=== PATIENT | male | born 1975 | race American Indian/Alaskan Native ===

== ENCOUNTER 2021-12-07 15:26 | Emergency (ER) | payer MEDICARE ==
--- NOTE | 2021-12-07 17:18 | Emergency Department Report ---
HPI - General Chief Complaint: Psych Time Seen by Provider: 12/07/21 16:36 - HPI HPI: Room 12 The patient is a 46-year-old male present with a chief complaint of psychosis. The patient reportedly has not been sleeping for 3 days and has been anxious. The patient states today he wrote a letter to [place] president Andres Cerda telling him the warning [place] was wrong. Patient admits to auditory hallucinations hearing laughing and visual hallucinations seeing "the universe." Crisis team was called to the patient's home and responded and sent the patient to the ED stating that he is having psychosis. Patient denies suicidal homicidal ideation. Patient states he has been compliant with his medication for his schizophrenia, bipolar disorder depression which includes olanzapine. ED Past Medical Hx - Past Medical History Previous Medical History?: Yes Hx Psychiatric Treatment: Yes (BIPOLAR/ SCHIZOPHERNIA) Hx Asthma: Yes Additional medical history: History of polio - Surgical History Past Surgical History?: No - Family History Family history: no significant - Social History Smoking Status: Current Some Day Smoker Substance Use Type: None (Denies illicit drug use), Alcohol (Occasional) - Medications Home Medications: Home Medications Medication Instructions Recorded Confirmed Last Taken Type OLANzapine [Zyprexa] 12/07/21 Unknown History ED Review of Systems ROS: Stated complaint: MENTAL CRISIS Other details as noted in HPI Constitutional: no symptoms reported Eyes: denies: eye pain ENT: denies: throat pain Respiratory: no symptoms reported Cardiovascular: denies: chest pain Endocrine: no symptoms reported Gastrointestinal: denies: abdominal pain Genitourinary: denies: dysuria Musculoskeletal: denies: back pain Neurological: denies: headache Psychiatric: auditory hallucinations, visual hallucinations. denies: homicidal thoughts, suicidal thoughts Physical Exam - Physical Exam Vital Signs: Vital Signs 12/07/21 12/07/21 15:40 16:38 Temperature 98.7 F Pulse Rate 73 Respiratory 18 Rate Blood Pressure 144/94 [Right] O2 Sat by Pulse 98 99 Oximetry Physical Exam: GENERAL: The patient is well-developed well-nourished male sitting in chair eating food not appearing to be in acute distress. [] HEENT: Normocephalic. Atraumatic. Extraocular motions are intact. Patient has moist mucous membranes. NECK: Supple. Trachea midline CHEST/LUNGS: Clear to auscultation. There is no respiratory distress noted. HEART/CARDIOVASCULAR: Regular. There is no tachycardia. There is no gallop rub or murmur. ABDOMEN: Abdomen is soft, nontender. Patient has normal bowel sounds. There is no abdominal distention. SKIN: There is no rash. There is no edema. There is no diaphoresis. NEURO: The patient is awake, alert, and oriented. The patient is cooperative. The patient has no focal neurologic deficits. The patient has normal speech. GCS 15 MUSCULOSKELETAL: There is no evidence of acute injury. ED Course Vital Signs 12/07/21 12/07/21 15:40 16:38 Temperature 98.7 F Pulse Rate 73 Respiratory 18 Rate Blood Pressure 144/94 [Right] O2 Sat by Pulse 98 99 Oximetry ED Medical Decision Making - Lab Data Result diagrams: 12/07/21 17:25 12/07/21 17:25 Laboratory Tests 12/07/21 12/07/21 12/07/21 17:25 17:25 17:25 WBC 4.3 L RBC 6.18 H Hgb 17.3 H Hct 53.9 H MCV 87 MCH 28 MCHC 32 RDW 14.5 Plt Count 134 L Lymph % (Auto) 24.6 [place] % (Auto) 10.8 H Eos % (Auto) 6.1 H Baso % (Auto) 0.6 Lymph # (Auto) 1.1 L [place] # (Auto) 0.5 Eos # (Auto) 0.3 Baso # (Auto) 0.0 Seg Neutrophils % 57.9 Seg Neutrophils # 2.5 Sodium 137 Potassium 4.2 Chloride 98.7 Carbon Dioxide 25 Anion Gap 18 BUN 7 L Creatinine 0.7 L Estimated GFR > 60 BUN/Creatinine Ratio 10 Glucose 151 H Calcium 9.4 Total Bilirubin 0.50 AST 50 H ALT 36 Alkaline Phosphatase 96 Total Protein 8.1 Albumin 4.5 Albumin/Globulin Ratio 1.3 Urine Color Urine Turbidity Urine pH Ur Specific [place] Urine Protein Urine Glucose (UA) Urine Ketones Urine Blood Urine Nitrite Urine Bilirubin Urine Urobilinogen Ur Leukocyte Esterase Urine WBC (Auto) Urine RBC (Auto) Urine Mucus Salicylates < 0.3 L Urine Opiates Screen Urine Methadone Screen Acetaminophen Ur Barbiturates Screen Ur Phencyclidine Scrn Ur Amphetamines Screen U Benzodiazepines Scrn Urine Cocaine Screen U Marijuana (THC) Screen Drugs of Abuse Note Plasma/Serum Alcohol 03/12/07/21 12/07/21 17:25 17:25 Unknown WBC RBC Hgb Hct MCV MCH MCHC RDW Plt Count Lymph % (Auto) [place] % (Auto) Eos % (Auto) Baso % (Auto) Lymph # (Auto) [place] # (Auto) Eos # (Auto) Baso # (Auto) Seg Neutrophils % Seg Neutrophils # Sodium Potassium Chloride Carbon Dioxide Anion Gap BUN Creatinine Estimated GFR BUN/Creatinine Ratio Glucose Calcium Total Bilirubin AST ALT Alkaline Phosphatase Total Protein Albumin Albumin/Globulin Ratio Urine Color Straw Urine Turbidity Clear Urine pH 6.0 Ur Specific [place] 1.009 Urine Protein <15 mg/dl Urine Glucose (UA) Neg Urine Ketones Neg Urine Blood Sm Urine Nitrite Neg Urine Bilirubin Neg Urine Urobilinogen < 2.0 Ur Leukocyte Esterase Neg Urine WBC (Auto) 1.0 Urine RBC (Auto) 2.0 Urine Mucus Few Salicylates Urine Opiates Screen Urine Methadone Screen Acetaminophen 5.0 L Ur Barbiturates Screen Ur Phencyclidine Scrn Ur Amphetamines Screen U Benzodiazepines Scrn Urine Cocaine Screen U Marijuana (THC) Screen Drugs of Abuse Note Plasma/Serum Alcohol < 0.01 12/07/21 Unknown WBC RBC Hgb Hct MCV MCH MCHC RDW Plt Count Lymph % (Auto) [place] % (Auto) Eos % (Auto) Baso % (Auto) Lymph # (Auto) [place] # (Auto) Eos # (Auto) Baso # (Auto) Seg Neutrophils % Seg Neutrophils # Sodium Potassium Chloride Carbon Dioxide Anion Gap BUN Creatinine Estimated GFR BUN/Creatinine Ratio Glucose Calcium Total Bilirubin AST ALT Alkaline Phosphatase Total Protein Albumin Albumin/Globulin Ratio Urine Color Urine Turbidity Urine pH Ur Specific [place] Urine Protein Urine Glucose (UA) Urine Ketones Urine Blood Urine Nitrite Urine Bilirubin Urine Urobilinogen Ur Leukocyte Esterase Urine WBC (Auto) Urine RBC (Auto) Urine Mucus Salicylates Urine Opiates Screen Negative Urine Methadone Screen Negative Acetaminophen Ur Barbiturates Screen Negative Ur Phencyclidine Scrn Negative Ur Amphetamines Screen Negative U Benzodiazepines Scrn Negative Urine Cocaine Screen Negative U Marijuana (THC) Screen Negative Drugs of Abuse Note Disclamer Plasma/Serum Alcohol - Differential Diagnosis Schizophrenia Critical care attestation.: If time is entered above; I have spent that time in minutes in the direct care of this critically ill patient, excluding procedure time. ED Disposition Clinical Impression: Schizophrenia Disposition: 30 STILL A PATIENT Is pt being admited?: No Does the pt Need Aspirin: No Condition: Stable Time of Disposition: 18:30 (Awaiting acceptance)
[2021-12-07 17:46] LABS: Bilirubin,Urine NEG (Negative); Blood,Urine SM (Negative); Color,Urine Straw (Yellow); Mucus,Urine FEW /HPF; Protein,Urine <15 mg/dL mg/dL (Negative); Urobilinogen,Urine < 2.0 mg/dL (<2.0)
[2021-12-07 17:53] LABS: Amphetamine Screen,Urine Negative; Benzodiazepines Screen,Urine Negative; Cannabinoid Screen,Urine Negative; Cocaine Screen,Urine Negative; Methadone Screen,Urine Negative; Opiate Screen,Urine Negative
[2021-12-07 17:56] LABS: Basophils % (Auto) 0.6 % (0.0-1.8); Eosinophils # (Auto) 0.3 K/mm3 (0.0-0.4); Eosinophils % (Auto) 6.1 % (0.0-4.3); Hematocrit 53.9 % (35.5-45.6); Hemoglobin 17.3 gm/dl (11.8-15.2); Lymphocytes # (Auto) 1.1 K/mm3 (1.2-5.4); Lymphocytes % (Auto) 24.6 % (13.4-35.0); Mean Corpuscular HGB Conc 32 % (32-34); Mean Corpuscular Volume 87 fl (84-94); Monocytes # (Auto) 0.5 K/mm3 (0.0-0.8); Monocytes % (Auto) 10.8 % (0.0-7.3); Platelet Count 134 K/mm3 (140-440); Red Blood Count 6.18 M/mm3 (3.65-5.03); Red Cell Distribution Width 14.5 % (13.2-15.2)
[2021-12-07 18:19] LABS: Alanine Aminotransferase 36 units/L (7-56); Albumin 4.5 g/dL (3.9-5); Blood Urea Nitrogen 7 mg/dL (9-20); Calcium 9.4 mg/dL (8.4-10.2); Hemolysis Index 11
[2021-12-07 18:26] LABS: BUN/Creatinine Ratio 10
--- NOTE | 2021-12-07 19:45 | Event Note ---
I spoke with mental health cloth dyer. Involuntary hold indicated due to acute psychosis paranoia. I have completed 1013 form after evaluating patient.
[2021-12-08] MEDS ORDERED: ZIPRASIDONE MESYLATE 20 MG VIAL IM ONE (07:30)
--- NOTE | 2021-12-08 10:13 | Consultation ---
History of Present Illness - Reason for Consult Consult date: 12/08/21 Reason for consult: acute psychosis - History of Present Psychiatric Illness ED Note: The patient is a 46-year-old male present with a chief complaint of psychosis. The patient reportedly has not been sleeping for 3 days and has been anxious. The patient states today he wrote a letter to [place] president Andres Cerda telling him the warning [place] was wrong. Patient admits to auditory hallucinations hearing laughing and visual hallucinations seeing "the universe." Crisis team was called to the patient's home and responded and sent the patient to the ED stating that he is having psychosis. Patient denies suicidal homicidal ideation. Patient states he has been compliant with his medication for his schizophrenia, bipolar disorder depression which includes olanzapine. The patient was seen pacing, standing at the door with disorganized thinking. The patient states " [place] is okay, if you come from [place] you can sleep where you like." He endorses auditory hallucinations " voices saying there's no need to fight." The patient was administered Geodon 20mg IM. Diagnoses: Schizophrenia, Bipolar Suicide attempts or Self-harm behavior: Yes Prior psychiatric hospitalizations: Yes Substance Abuse history: Denies Previous psychiatric medications tried:Unable to recall Outpatient treatment: Unknown PAST MEDICAL HISTORY: unknown Family Psychiatric History: None reported or documented SOCIAL HISTORY Marital Status: Single Living Arrangements: lives alone Employment Status: unknown Access to guns/weapons: Denies Education: 12th grade History of Abuse: none reported Legal History: none reported REVIEW OF SYSTEMS Constitutional: Negative for weight loss ENT: Negative for stridor Respiratory: Negative for cough or hemoptysis All other systems reviewed and are negative MENTAL STATUS EXAMINATION General Appearance and Behavior: Age appropriate, good hygiene, wearing appropriate clothes, calm, cooperative Cooperation: Participating/engaged Psychomotor Behavior: Normal Mood: psychosis Affect and affective range: congruent with mood Thought Process: Disorganized Thought Content: Hallucinations Speech: Hypervebal Suicidal Ideation: Denies Homicidal Ideation: Denies Hallucinations: Auditory Delusions: None elicited Impulse Control: Questionable Insight and Judgment: Limited insight and judgment, Memory: Normal Attention: Divided Orientation: Alert, oriented Assessment and Plan (1)Schizophrenia Current Visit: Yes Status: Acute 1013 Treatment Plan Zyprexa 10mg po BID The patient needs to follow up with his outpatient psychiatrist and therapist. Continue home meds Disposition: Recommend psychiatric inpatient admission at this time. Will follow. Thanks Case staffed with Dr. Zhu Medications and Allergies Medications and Allergies Allergies Allergy/AdvReac Type Severity Reaction Status Date / Time No Known Allergies Allergy Unverified 12/07/21 15:37 Home Medications Medication Instructions Recorded Confirmed Last Taken Type OLANzapine [Zyprexa] 5 mg PO HS 12/07/21 12/07/21 Unknown History Mental Status Exam - Vital signs Last Vital Signs Temp 97.6 F 12/08/21 09:41 Pulse 90 12/08/21 09:41 Resp 18 12/08/21 09:41 BP 108/74 12/08/21 09:41 Pulse Ox 97 12/08/21 09:41 Results Result Diagrams: 12/07/21 17:25 12/07/21 17:25 Abnormal lab results 12/07/21 12/07/21 12/07/21 Range/Units 17:25 17:25 17:25 WBC 4.3 L (4.5-11.0) K/mm3 RBC 6.18 H (3.65-5.03) M/mm3 Hgb 17.3 H (11.8-15.2) gm/dl Hct 53.9 H (35.5-45.6) % Plt Count 134 L (140-440) K/mm3 [place] % (Auto) 10.8 H (0.0-7.3) % Eos % (Auto) 6.1 H (0.0-4.3) % Lymph # (Auto) 1.1 L (1.2-5.4) K/mm3 BUN 7 L (9-20) mg/dL Creatinine 0.7 L (0.8-1.3) mg/dL Glucose 151 H (75-100) mg/dL AST 50 H (5-40) units/L Salicylates < 0.3 L (2.8-20.0) mg/dL Acetaminophen (10.0-30.0) ug/mL 12/07/21 Range/Units 17:25 WBC (4.5-11.0) K/mm3 RBC (3.65-5.03) M/mm3 Hgb (11.8-15.2) gm/dl Hct (35.5-45.6) % Plt Count (140-440) K/mm3 [place] % (Auto) (0.0-7.3) % Eos % (Auto) (0.0-4.3) % Lymph # (Auto) (1.2-5.4) K/mm3 BUN (9-20) mg/dL Creatinine (0.8-1.3) mg/dL Glucose (75-100) mg/dL AST (5-40) units/L Salicylates (2.8-20.0) mg/dL Acetaminophen 5.0 L (10.0-30.0) ug/mL All other labs normal.
--- NOTE | 2021-12-08 12:18 | Event Note ---
Date: 12/08/21 S: Patient was reportedly restless and hyperverbal this morning requiring medication. Otherwise no events reported overnight O: Vital Signs - 8 hr 12/08/21 12/08/21 07:56 09:41 Temperature 97.6 F Pulse Rate 90 Respiratory 18 Rate Blood Pressure 108/74 [Right] O2 Sat by Pulse 100 97 Oximetry A: Schizophrenia P: 1013/awaiting inpatient psych
--- NOTE | 2021-12-09 09:21 | Progress Note ---
Subjective - Reason for Consult Consult date: 12/09/21 Reason for consult: Psychosis - Chief Complaint Chief complaint: The patient was seen this morning. He continues to present with disorganized thoughts and hyperverbal. REVIEW OF SYSTEMS Constitutional: Negative for weight loss ENT: Negative for stridor Respiratory: Negative for cough or hemoptysis All other systems reviewed and are negative MENTAL STATUS EXAMINATION General Appearance and Behavior: Age appropriate, good hygiene, wearing appropriate clothes, calm, cooperative Cooperation: Participating/engaged Psychomotor Behavior: Normal Mood: psychosis Affect and affective range: congruent with mood Thought Process: Disorganized Thought Content: Hallucinations Speech: Hypervebal Suicidal Ideation: Denies Homicidal Ideation: Denies Hallucinations: Auditory Delusions: None elicited Impulse Control: Questionable Insight and Judgment: Limited insight and judgment, Memory: Normal Attention: Divided Orientation: Alert, oriented Assessment and Plan (1)Schizophrenia Current Visit: Yes Status: Acute 1013 Treatment Plan Zyprexa 10mg po BID The patient needs to follow up with his outpatient psychiatrist and therapist. Continue home meds Disposition: Recommend psychiatric inpatient admission at this time. Will follow. Thanks Case staffed with Dr. Zhu Medications and Allergies Mental Status Exam - Vital signs Last Vital Signs Temp 97.6 F 12/08/21 09:41 Pulse 90 12/08/21 09:41 Resp 18 12/08/21 09:41 BP 108/74 12/08/21 09:41 Pulse Ox 97 12/08/21 09:41
--- NOTE | 2021-12-09 11:10 | Event Note ---
Date: 12/09/21 vss , no distress , medically cleared psych assessed continue 1013 awaiting psych transfer
[2021-12-10 03:24] VITALS: BP 123/76
--- NOTE | 2021-12-10 09:24 | Progress Note ---
Subjective - Reason for Consult Consult date: 12/10/21 Reason for consult: Psychosis - Chief Complaint Chief complaint: The patient was seen this morning. He continues to present with disorganized thoughts. He reports having commanding auditory hallucinations " voices telling him prepare to fight. " REVIEW OF SYSTEMS Constitutional: Negative for weight loss ENT: Negative for stridor Respiratory: Negative for cough or hemoptysis All other systems reviewed and are negative MENTAL STATUS EXAMINATION General Appearance and Behavior: Age appropriate, good hygiene, wearing appropriate clothes, calm, cooperative Cooperation: Participating/engaged Psychomotor Behavior: Normal Mood: psychosis Affect and affective range: congruent with mood Thought Process: Disorganized Thought Content: Hallucinations Speech: Hypervebal Suicidal Ideation: Denies Homicidal Ideation: Denies Hallucinations: Auditory Delusions: None elicited Impulse Control: Questionable Insight and Judgment: Limited insight and judgment, Memory: Normal Attention: Divided Orientation: Alert, oriented Assessment and Plan (1)Schizophrenia Current Visit: Yes Status: Acute 1013 Treatment Plan Zyprexa 10mg po BID The patient needs to follow up with his outpatient psychiatrist and therapist. Continue home meds Disposition: Recommend psychiatric inpatient admission at this time. Will follow. Thanks Case staffed with Dr. Zhu Medications and Allergies Mental Status Exam - Vital signs Last Vital Signs Temp 97.8 F 12/10/21 03:16 Pulse 68 12/10/21 03:16 Resp 16 12/10/21 03:16 BP 123/76 12/10/21 03:16 Pulse Ox 100 12/10/21 03:16
--- NOTE | 2021-12-10 11:18 | Event Note ---
Date: 12/10/21 vss , no distress , no events overnight awaiting placement and transfer
== END 2021-12-10 17:41 ==
LOC: ED 15:26 → EEVIPCON 15:26 → ED 12-10 17:41
DX: F20.9 Schizophrenia, unspecified (principal); J45.909 Unspecified asthma, uncomplicated; F17.200 Nicotine dependence, unspecified, uncomplicated; Z20.822 Contact with and (suspected) exposure to COVID-19
CPT/HCPCS: 36415; 80053; 80307; 81001; 85025; 96372; 99285; J3486; U0003; 80320; 99283; G0480